=== PATIENT | female | born 1965 | race Caucasian/White ===

== ENCOUNTER → 2025-10-14 | Outpatient (CLI) | payer OTHER, SELFPAY ==
--- NOTE | 2025-10-14 09:15 | CYST_PTH ---
PATIENT: ROSALIA CASH LOC: [facility] #:[id number] AGE/SX: 60/F ROOM: RE10/14/[address]: Dr. Jason Chaves MD : 1965 BED: DIS: 10/14/2025 SPEC #: [id number] RECD: 10/14/25 15:57 STATUS: SACHIN REQ #: [id number] JAIDEN: 10/14/25 09:[address]: Jason Chaves DEPT: SURGICAL PATHOLOGY RECD BY: Lida Banks ENTERED: 10/17/25 08:11 SP TYPE: Cyst OTHR DR: Dr. Charles Parra MD Tissues: A - CYST B - Abdomen, NOS Procedures: Surgery Specimen Level III HEADER OPERATION: Excision of back / left abdomen cyst PRE-OP DIAGNOSIS: Back / left abdomen cyst TISSUE SUBMITTED: A- Back cyst, B- Left abdomen MICROSCOPIC DIAGNOSIS A. Skin, back, cyst, excision: - Epidermal inclusion cyst. B. 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 MICROSCOPIC DESCRIPTION Slides are reviewed. GROSS DESCRIPTION Received in 2 formalin containers labeled with the patient's name and date of . Designated as: A. #1 back cyst is a 2.4 x 2.3 x 1.5 cm focally disrupted cyst with attached soft tissue, expelling sebaceous like material and surfaced by a castro, granular, unoriented skin ellipse, 3.2 x 0.7 cm. A abrasives sales representative section is submitted in 1 cassette. B. #2 L abdomen is a 1.4 x 1.0 x 0.5 cm castro-white to brown, somewhat shaggy portion of soft tissue, surfaced by a 1.3 x 0.6 cm castro skin ellipse devoid of orientation. Sectioning reveals congested cut surfaces and a 0.3 x 0.2 cm cyst containing a minimal amount of sebaceous like material. Entirely submitted in 1 cassette. [place] 10/17/2025 CPT:06544v3
--- OUTSIDE RECORDS SUMMARY | 2025-10-14 16:14 | XMS RPT_ITS | CCD ---
Author Organization [place] [facility] [facility] Care Team Providers Care Ore Miner Name Role Phone BREE NGUYEN Unavailable Unavailable MELANIA DONAHUE Unavailable Unavailable Primary Care Provider UnavailDr. Татьяна Chaudhry MD Attending Provider [phone] ТАТЬЯНА CHAVES MD Attending Unavail MELANIA Hargrove MD Primary Care Unavailable Dr. Татьяна Chaves MD Attending Physician [phone] Huong SENIOR NET ENGINEER, Rosalia Referring Unavailable Татьяна Chaves Attending Unavailable Татьяна Chaves Attending Unavailable Allergies Allergy Classification Reported Allergen(s) Allergy Type Date of Onset Reaction(s) Facility (1 source) Gadolinium-MRI Contrast Medium Allergy to substance 08-12-2025 Anaphylaxis [facility] (1 source) Gadolinium-MRI Contrast Medium Drug allergy (disorder) 08-12-2025 [facility] Repository Medications Current Medications Medication Drug Class(es) Dates Sig (Normalized) Sig (Original) [id number] 0.3 ml EPINEPHrine 1 mg/ml auto-injector (1 source) alpha-Adrenergic Agonist, beta-Adrenergic Agonist, Catecholamine Start: 07-08-2025 Epinephrine 0.3 mg/0.3 mL auto-injector Active 0.3 mg IM ONCE July 08, 2025 12:00am as a single dose; may repeat once Complies with drug therapy levocetirizine dihydrochloride 0.5 mg/ml oral solution (1 source) Histamine-1 Receptor Antagonist Start: 07-08-2025 take 5 mg by mouth once daily Levocetirizine (Xyzal) 2.5 mg/5 mL solution Active 5 mg PO daily July 08, 2025 12:00am Complies with drug therapy lisinopril 20 mg oral tablet (1 source) Angiotensin Converting Enzyme Inhibitor Start: 07-08-2025 take 1 tablet by mouth once daily Lisinopril 20 mg tablet Active 20 mg PO daily July 08, 2025 12:00am Complies with drug therapy red yeast rice 600 mg / ubidecarenone 25 mg oral capsule (1 source) Start: 07-08-2025 Co Q10-Red Yeast Rice 25-600 mg capsule Active NMA PO July 08, 2025 12:00am Complies with drug therapy Problems Problem Classification Problem Date Documented Da te Episodic/Chronic Other gastrointestinal disorders (1 source) Cyst of abdomen 07-08-2025 Episodic Other skin disorders (2 sources) Epidermoid cyst of skin of back; Translations: [Epidermal cyst] 07-08-2025 Episodic Other skin disorders (2 sources) Epidermoid cyst; Translations: [Epidermal cyst] 07-08-2025 Episodic Other skin disorders (1 source) Epidermal cyst; Translations: [Epidermal cyst] Onset: 08-24-2025 Episodic Results Test Name Value Interpretation Reference Range Facility Plastic Surgery Visit Report on 08-12-2025 Plastic Surgery Visit Report [facility] Plastic Reconstructive Surgery [address], [address] [place] [address] OFFICE VISIT Date of Service: 08/12/25 MR#: [id number] Acct: [id number] Name: ROSALIA CASH Rep #: [id number] : 1965 Provider: Dr. Татьяна Chaves MD Age/Sex: 59/F Location: [facility] Status: Signed Intake Vital Signs 3 07/08/25 12:03 08/12/25 14:22 Height 5 ft 5.5 in 5 ft 5.5 in Weight: 195 lb BMI 31.9 BP 148/81 H 121/74 H Blood Pressure Location Lt brachial Lt brachial Position Sitting Sitting Respiration 18 18 Pulse 69 75 Temp 98.7 F 97.5 F L Temp Source Temporal Oral Pulse Oximetry (%) 95 93 Oxygen Delivery Method room air room air Intake Visit Reasons: US results Chief Complaint: cyst on abdomen and back Is patient in pain?: No Allergies Gadolinium-MRI Contrast Medium (contrast dye) Allergy (Mild, Verified 08/12/25 14:23) Anaphylaxis Medications 3 ???Medication ???Instructions ???Recorded ???Confirmed ???Type coenzyme Q10-red yeast rice 25 cap PO 07/08/25 08/12/25 History mg-600 mg capsule epinephrine 0.3 mg/0.3 mL 0.3 mg IM ONCE 07/08/25 08/12/25 H istory injection, auto-injector levocetirizine 2.5 mg/5 mL oral 5 mg PO QDAY 07/08/25 08/12/25 His tory solution (Xyzal) lisinopril 20 mg tablet 20 mg PO QDAY 07/08/25 08/12/25 Hi story [facility] Medical History (Updated 07/08/25 @ 13:06 by Kourtney Gutierrez) Hypertension Chronic headaches Bladder infection Bone fracture Anemia Allergies Surgical History (Updated 07/08/25 @ 11:33 by Kourtney Gutierrez) H/O: hysterectomy Family History (Updated 07/08/25 @ 12:07 by Kourtney Gutierrez) Father Bleeding disorder Blood clot in vein Asthma Alcoholism Anxiety Depression Hypertension Skin cancer CVA (cerebral vascular accident) Mother Arthritis High cholesterol Osteoporosis Thyroid disorder Social History (Updated 07/08/25 @ 12:08 by Kourtney Gutierrez) Smoking Status: Never smoker alcohol intake: never substance use type: does not use additional social history: pt denies vaping, denies edibles, denies marijuana, denies aspirin and denies ibuprofen use pt does have family history of blood disorder HPI US results Details: The patient is a 59-year-old female presenting with cysts on the abdomen and back. The abdominal cyst, identified as an epidermal inclusion cyst, has been present since last summer and was previously drained by a physician architectural administrative assistant. The patient reports no history of abdominal surgeries, except for a transvaginal hysterectomy, and denies any history of Crohn's disease. The cyst on the mid back is consistent with a sebaceous cyst, as previously diagnosed by another healthcare provider. The patient has a history of MRSA infection, for which she was treated with doxycycline and Augmentin. She is cautious about infection due to family members having MRSA and has been taking precautions to avoid exposure. ROS: - Integumentary: Reports two cysts, one on the abdomen and one on the back. Denies new lumps or bumps. - Gastrointestinal: Denies history of abdominal surgeries except for a transvaginal hysterectomy. Denies Crohn's disease. Attestation: Documentation on this patient encounter was supported using ambient scribe technology/ voice AI technology. The patient consented to recording for the purpose of documenting the encounter. Provider reviewed content of the generated note prior to signature. Exam Details - Abdominal: No hernias detected, no scars from any abdominal surgeries - Dermatological: Presence of lateral abdominal wall cyst, described as chronically infected epidermal inclusion cyst that is open and draining. No signs of acute infection There is also well-circumscribed posterior trunk cyst that is subcutaneous mobile Supplemental Info - Ultrasound: Soft tissue ultrasound performed on both cysts, confirming their presence. Coding Level of Care Code Off vis,est,level 2 Diagnoses Epidermoid cyst of skin of back L72.0 Cyst of abdomen Assessment and Plan (No Qualifiers) Assessment and Plan (1) Epidermoid cyst of skin of back: Status: Acute (2) Cyst of abdomen: Status: Acute Plan: Assessment and Plan 59-year-old female with a history of epidermal inclusion cyst on the abdomen and sebaceous cyst on the mid back presenting for evaluation and management of these lesions. The abdominal cyst has been present since last summer and was previously drained, but it has not resolved completely, suggesting the need for surgical excision to prevent recurrence. The cyst on the back is consistent with a sebaceous cyst, and surgical removal is considered to prevent potential complications. The patient has a history of MRSA infection, w (more content not included)... Normal [facility] US SOFT TISSUE MASS OF ABD/M ID BACKon 07-20-2025 US SOFT TISSUE MASS OF ABD/MID BACK ORIGINAL EXAMINATION: SOFT TISSUE ULTRASOUND 07/20/2025 7:45 am COMPARISON: None. HISTORY: ORDERING SYSTEM PROVIDED HISTORY: Reason for Exam: CYST ON mid back (EPIDERMAL CYST) All images are recorded and archived. FINDINGS: Linear real-time Doppler evaluation demonstrates a 1.6 x 1.5 x 1.0 cm complex cyst with posterior wall enhancement and prominent peterson in the region of interest in the lower left lumbar region. Appearance is most consistent with a sebaceous cyst. IMPRESSION: 1.6 cm sebaceous cyst in the region of interest. Interpreted by: Quincy Flores DO Preliminary Report By: Quincy Flores DO Electronically signed By Quincy Flores DO Dictated Date: 07/20/2025 11:19:02 AM Prelim Date: 07/20/2025 11:20:44 AM Sign Date: 07/20/2025 11:20:44 AM Ordering Provider: [facility] MAIN US SOFT TISSUE MASS PELVIS/H IP/LOW BACKon 07-20-2025 US SOFT TISSUE MASS PELVIS/HIP/ LOW BACK ORIGINAL EXAMINATION: SOFT TISSUE ULTRASOUND 07/20/2025 7:40 am COMPARISON: None. HISTORY: ORDERING SYSTEM PROVIDED HISTORY: Reason for Exam: CYST ON low left abd/hip All images are recorded and archived. FINDINGS: Linear real-time and Doppler evaluation in the region of the left hip performed. Subcutaneous collection of hypoechogenicity measuring 1.7 x 2.5 x 0.4 cm appreciated in the region of interest. The lesion demonstrates vascularity on Doppler assessment. There is a associated skin tract. No other abnormality is seen in the region of interest. IMPRESSION: 1. 1.7 x 2.5 x 0.4 cm subcutaneous collection of hypoechogenicity in the region of interest. This may represent a small abscess or hematoma. 2. If there is clinical concern for infection, consider CT imaging of the abdomen and pelvis with IV contrast for further assessment. Interpreted by: Quincy Flores DO Preliminary Report By: Quincy Flores DO Electronically signed By Quincy Flores DO Dictated Date: 07/20/2025 11:20:48 AM Prelim Date: 07/20/2025 11:23:51 AM Sign Date: 07/20/2025 11:23:51 AM Ordering Provider: [facility] MAIN Plastic Surgery Visit Report on 07-08-2025 Plastic Surgery Visit Report [facility] Plastic Reconstructive Surgery [address], [address] [place] [address] OFFICE VISIT Date of Service: 07/08/25 MR#: [id number] Acct: [id number] Name: ROSALIA CASH Rep #: [id number] : 1965 Provider: Dr. Татьяна Chaevs MD Age/Sex: 59/F Location[facility] Status: Signed Intake Vital Signs 3 07/08/25 12:03 Height 5 ft 5.5 in Weight: 195 lb BMI 31.9 BP 148/81 H Blood Pressure Location Lt brachial Position Sitting Respiration 18 Pulse 69 Temp 98.7 F Temp Source Temporal Pulse Oximetry (%) 95 Oxygen Delivery Method room air Intake Visit Reasons: CYST ON ABDOMEN Chief Complaint: cyst on abdomen and back Is patient in pain?: No Allergies Gadolinium-MRI Contrast Medium (contrast dye) Allergy (Mild, Verified 07/08/25 12:05) Anaphylaxis Medications 3 ???Medication ???Instructions ???Recorded ???Confirmed ???Type coenzyme Q10-red yeast rice 25 cap PO 07/08/25 07/08/25 History mg-600 mg capsule epinephrine 0.3 mg/0.3 mL 0.3 mg IM ONCE 07/08/25 07/08/25 H istory injection, auto-injector levocetirizine 2.5 mg/5 mL oral 5 mg PO QDAY 07/08/25 07/08/25 His tory solution (Xyzal) lisinopril 20 mg tablet 20 mg PO QDAY 07/08/25 07/08/25 Hi story PFSH Medical History (Updated 07/08/25 @ 13:06 by Kourtney Gutierrez) Hypertension Chronic headaches Bladder infection Bone fracture Anemia Allergies Surgical History (Updated 07/08/25 @ 11:33 by Kourtney Gutierrez) H/O: hysterectomy Family History (Updated 07/08/25 @ 12:07 by Kourtney Gutierrez) Father Bleeding disorder Blood clot in vein Asthma Alcoholism Anxiety Depression Hypertension Skin cancer CVA (cerebral vascular accident) Mother Arthritis High cholesterol Osteoporosis Thyroid disorder Social History (Updated 07/08/25 @ 12:08 by Kourtney Gutierrez) Smoking Status: Never smoker alcohol intake: never substance use type: does not use additional social history: pt denies vaping, denies edibles, denies marijuana, denies aspirin and denies ibuprofen use pt does have family history of blood disorder HPI CYST ON ABDOMEN Details: The patient is a 59-year-old female presenting with an epidermal inclusion cyst on her back. The cyst has been present for some time, but recently became more noticeable due to an upcoming family event, her daughter's wedding. Previously, similar cysts have been removed from her breast, and she has been advised not to address them unless symptomatic. The patient has a history of retinal vein occlusion, which occurred without a clear cause. Extensive blood work was performed, revealing an elevated A1c level of 6.2, indicating prediabetes. Following dietary changes and weight loss, her A1c levels have improved, and her physician is not currently concerned about diabetes progression. ROS: - Dermatological: Reports presence of epidermal inclusion cyst on back, denies pain or discomfort. - Endocrine: Reports elevated A1c level previously, currently improving with diet and exercise. - Ophthalmological: Reports history of retinal vein occlusion, denies current visual disturbances. Attestation: Documentation on this patient encounter was supported using ambient scribe technology/ voice AI technology. The patient consented to recording for the purpose of documenting the encounter. Provider reviewed content of the generated note prior to signature. ROS General General: Yes good health; No fatigue, fever(s) or weight loss HENMT HENMT: No rhinitis, sore throat/mouth sore, nasal congestion, contacts or glaucoma Endo Endocrine: No thyroid disease, polydipsia, heat intolerance, cold intolerance, hepatitis or excessive urine Skin Skin: No Bleeding, bruising, changing moles or suspicious lesion Musc Musculoskeletal: Yes joint pain and joint stiffness; No muscle weakness, back pain, osteoarthritis or Muscle aches/ myalgia Neuro Neurological: No headache(s), No lightheadedness and No numbness Cardio Cardiovascular: No chest pain, pacemaker, fatigue or shortness of breat with exertion Psych Psychiatric: No depression, claustrophobia or anxiety Resp Respiratory: No spitting up, shortness of breath, sleep apnea, asthma, emphysema, TB, Cough or Smoker Gastro Gastrointestinal: No diarrhea, constipation, blood in stool, nausea, vomiting or abdominal bloating Tima Hematologic: No anemia, No bleeding and No abnormal bleeding Genitourinary: No urinary frequency, blood in urine or incontinence Exam Details - Abdominal: No hernias detected, no scars from any abdominal surgeries - Dermatological: Presence of lateral abdominal wall cyst, described as chronically infected epidermal inclusion cyst that is open and draining. No signs of acu (more content not included)... Normal [facility] URINE CULTUREon 01-29-2021 Bacteria identified Cx Nom (U) URINE RESULT LESS THAN 10,000 COLONIES PER ML Normal [facility] Comment on above: Order Comment: [place]: [place] Performed By: #### M [id number] #### [address] [address] PH# [phone] DIPSTICKon 01-27-2021 POC APPEARANCE HAZY Normal CLEAR [facility] Comment on above: Order Comment: [place]: [place] Performed By: #### L 600.49531 #### [address] [address] PH# [phone] POC BILIRUBIN Negative Normal NEGATIVE [facility] Comment on above: Order Comment: [place]: [place] Performed By: #### L 600.85916 #### [place] [id number] PH# [phone] POC BLOOD Negative Normal NEGATIVE [facility] Comment on above: Order Comment: [place]: [place] Performed By: #### L 600.58351 #### [place] [address] PH# [phone] POC COLOR YELLOW Normal [facility] Comment on above: Order Comment: [place]: [place] Performed By: #### L 600.01767 #### [place] [address] PH# [phone] POC KETONE Negative Normal NEGATIVE [facility] Comment on above: Order Comment: [place]: [place] Performed By: #### L 600.23323 #### [place] [id number] PH# [phone] POC LEUK EST Negative Normal NEGATIVE [facility] Comment on above: Order Comment: [place]: [place] Performed By: #### L 600.89845 #### [place] [id number] PH# [phone] POC NITRITE Negative Normal NEGATIVE [facility] Comment on above: Order Comment: [place]: [place] Performed By: #### L 600.66629 #### [place] [id number] PH# [phone] POC PROTEIN Negative Normal NEGATIVE [facility] Comment on above: Order Comment: [place]: [place] Performed By: #### L 600.96600 #### [address] [place] [address] PH# [phone] POC SPEC GRAV 1.030 Normal 1.005-1.03 0 [facility] Comment on above: Order Comment: [place]: [place] Performed By: #### L 600.24798 #### [address] [place] [address] PH# [phone] POC UA GLUCOSE NORMAL Normal NORMAL [facility] Comment on above: Order Comment: [place]: [place] Performed By: #### L 600.13407 #### [address] [place] [address] PH# [phone] POC UA PH 5.5 Normal 5-6 [facility] Comment on above: Order Comment: [place]: [place] Performed By: #### L 600.96115 #### [address] [place] [address] PH# [phone] POC UROBIL NORMAL Normal NORMAL [facility] Comment on above: Order Comment: [place]: [place] Performed By: #### L 600.49868 #### [place] [address] PH# [phone] NMon 01-27-2021 [facility] REPORT Normal [facility] DATE OF SERVICE: CHIEF COMPLAINT: Urinary frequency. HISTORY OF PRESENT ILLNESS: This 55-year-old female presented with urinary frequency and abdominal tenderness going on since . No other complaint. DRUG ALLERGIES: VICODIN, LATEX, CECLOR, CONTRAST DYE, FLU VACCINE. MEDICATIONS: The patient is on: 1. Lisinopril. 2. Xyzal. 3. Flonase. PHYSICAL EXAMINATION: Blood pressure is 147/75, pulse 86, respiratory rate 20, temperature 99, pulse oximetry 96%. Pain is 5/10. HEENT within normal limits. Lungs and heart within normal limits. Abdomen is soft, diffuse tenderness, no rebound tenderness. LABORATORY: UA done was negative. ASSESSMENT: Dysuria, abdominal pain and urinary incontinence. PLAN: I discussed with the patient the treatments and plan. We will wait for the [facility] PATIENT NAME: ROSALIA CASH [address] [place] MEDICAL REC #: [id number] [place] [address] [facility] REPORT [facility] PHYSICIAN cultures. Have her follow up with her PCP. Patient understood. If any worsening symptoms or change in symptoms, I advised her to come back in. Golden Simpson MD [id number] [facility] File#: [id number] END OF DOCUMENT / CHANGE LOG FOLLOWS Last Edited By Elec. Signed By Golden Simpson MD, Thang N MD #DANTH on 01/31/2021 15:21 ET on 01/31/2021 15:21 ET Revision Number - 2 Verified/Reviewed by 01/31/[address] [facility] PATIENT NAME: ROSALIA CASH [facility] [address] [place] MEDICAL REC #: [id number] [place] [address] [facility] RE[facility] PHYSICIAN Normal [facility] XR CHEST 2 VIEWSon 7 XR CHEST 2 VIEWS ORIGINALXR CHEST 2 VIEWS CLINICAL STATEMENT: SOB, recurrent cough, allergies Comparison: None FINDINGS: The cardiomediastinal silhouette is within normal limits. No focal consolidation, vascular congestion, pleural effusion, or pneumothorax. No acute osseous abnormality. IMPRESSION: No acute radiographic finding. I have personally reviewed the images of this examination and agree with the resident's findings and interpretation. Interpreted By: Shakir Mckinney MDPreliminary Report By: Lexus Monroy DOElectronically Signed By: Shakir Mckinney MD Dictated Date: 09/05/2017 3:39:24 PM Prelim Date: 09/05/2017 4:35:16 PM Sign Date: 09/05/2017 4:38:44 PM Normal [facility] ([place]) Vital Signs Date Time Vital Sign Value Performing Clinician Faci lity 08-12-2025 14:22-0400 Body height 166.[address] Татьяна Chaves MD Work Phone: [facility] 08-12-2025 14:22-0400 Body temperature 97.5 [degF] Dr. Татьяна Chaves MD Work Phone: [facility] 08-12-2025 14:22-0400 Diastolic blood pressure 74 mm[Hg] Dr. Татьяна Chaves MD Work Phone: [facility] 08-12-2025 14:22-0400 Heart rate 75 /min Dr. Татьяна Chaves MD Work Phone: [facility] 08-12-2025 14:22-0400 Respiratory rate 18 /min Dr. Татьяна Chaves MD Work Phone: [facility] 08-12-2025 14:22-0400 SaO2% (BldA) [Mass fraction] 93 % Dr. Татьяна Chaves MD Work Phone: [facility] 08-12-2025 14:22-0400 Systolic blood pressure 121 mm[Hg] Dr. Татьяна Chaves MD Work Phone: [facility] 07-08-2025 12:03-0400 Body mass index (BMI) [Ratio] 31.9 kg/m2 Dr. Татьяна Chaves MD Work Phone: [facility] 07-08-2025 12:03-0400 Body temperature 98.7 [degF] Dr. Татьяна Chaves MD Work Phone: [facility] 07-08-2025 12:03-0400 Body weight 88.[address] Татьяна Chvaes MD Work Phone: [facility] 07-08-2025 12:03-0400 Diastolic blood pressure 81 mm[Hg] Dr. Татьяна Chaves MD Work Phone: [facility] 07-08-2025 12:03-0400 Heart rate 69 /min Dr. Татьяна Chaves MD Work Phone: [facility] 07-08-2025 12:03-0400 Respiratory rate 18 /min Dr. Татьяна Chaves MD Work Phone: [facility] 07-08-2025 12:03-0400 SaO2% (BldA) [Mass fraction] 95 % Dr. Татьяна Chaves MD Work Phone: [facility] 07-08-2025 12:03-0400 Systolic blood pressure 148 mm[Hg] Dr. Татьяна Chaves MD Work Phone: [facility] Encounters Encounter Date Encounter Type Care Provider Facility Start: 08-12-2025 End: 08-12-[address] Татьяна Chaves MD -[facility] Work Phone: Start: 08-12-2025 End: 08-12-2025 ambulatory Татьяна Chaves -[facility] Start: 07-20-2025 End: 07-20-2025 ambulatory ТАТЬЯНА CHAVES MD Facility:A Start: 07-08-2025 End: 07-08-[address] Татьяна Chaves MD -[facility] Work Phone: Start: 07-08-2025 End: 07-08-2025 ambulatory Rosalia Borja NP -[facility] Start: 01-27-2021 Patient encounter procedure Golden Simpson MD Work Phone: [facility] Start: 01-27-2021 Progress Note Golden armstrong MD Work Phone[facility] Start: 09-05-2017 End: 09-06-2017 Ambulatory BREE NGUYEN Facility:[facility] Date Care Activity Detail Author Start: 07-13-2025 [facility] Start: 07-08-2025 [facility] Payers Date Payer Category Payer Self-pay 2025 Unknown [id number] 2017 Unknown [id number] 1965 Unknown [id number] Unknown [id number] Unknown [id number] Social History Date Type Detail Facility Tobacco smoking status MAIS Tobacco smoking consumption unknown [facility] Start: 1965 Sex Assigned At Not on file [facility] Start: 1965 Sex Assigned At Female [facility] Start: 07-08-2025 Tobacco smoking status NHIS Never smoked tobacco (finding) [facility] Sex Female [facility] Evaluation note 07-08-2025 Note Date & Type Note Facility 07-08-2025 Evaluation note Diagnosis Onset Date Resolution Epidermoid cyst acute July 082024 11:03am Epidermoid cyst of skin of back acute July 08 11:03am [facility] Work Phone: History of Present illness Narrative 01-27-2021 Golden Simpson MD - 01/27/2021 12:12 PM EDT Note Date & Type Note Facility 01-27-2021 History of Present illness Narrative DATE OF SERVICE: 01/27/2021 CHIEF COMPLAINT: Urinary frequency. HISTORY OF PRESENT ILLNESS: This 55-year-old female presented with urinary frequency and abdominal tenderness going on since . No other complaint. DRUG ALLERGIES: VICODIN, LATEX, CECLOR, CONTRAST DYE, FLU VACCINE. MEDICATIONS: The patient is on: 1. Lisinopril. 2. Xyzal. 3. Flonase. PHYSICAL EXAMINATION: Blood pressure is 147/75, pulse 86, respiratory rate 20, temperature 99, pulse oximetry 96%. Pain is 5/10. HEENT within normal limits. Lungs and heart within normal limits. Abdomen is soft, diffuse tenderness, no rebound tenderness. LABORATORY: UA done was negative. ASSESSMENT: Dysuria, abdominal pain and urinary incontinence. PLAN: I discussed with the patient the treatments and plan. We will wait for the cultures. Have her follow up with her PCP. Patient understood. If any worsening symptoms or change in symptoms, I advised her to come back in. Golden Simpson MD [id number] [facility] File#: [id number] END OF DOCUMENT / CHANGE LOG FOLLOWS Last Edited By Ele[employer]. Signed By Golden Simpson MD, Thang N MD #DANTH on 01/31/2021 15:21 ET on 01/31/2021 15:21 ET Revision Number - 2 ^^^ Verified/Reviewed by 01/31/[address] [facility] PATIENT NAME: ROSALIA CASH [facility] [address] MEDICAL REC #: [id number] [place] [address] [facility] documented in this encounter [facility] Evaluation note Note Date & Type Note Facility Evaluation note No assessment information availa ble [facility] Work Phone: Reason for referral (narrative) Note Date & Type Note Facility Reason for referral (narrative) No reason for referral information available [facility] Work Phone: Summary Purpose Family History No Family History Records Found Relationship Condition Age at Onset Recorded Date/T kell father Hemorrhagic disorder Unknown Venous thrombosis Unknown Asthma Unknown Alcoholism Unknown Anxiety Unknown Depression Unknown Hypertension Unknown Malignant neoplasm of skin Unknown Cerebrovascular accident (CVA) Unknown mother Arthritis Unknown High blood cholesterol Unknown Osteoporosis Unknown Disorder of thyroid Unknown Advance Directives No Advanced Directives Records FoundNo Advanced Directives Records FoundNo Advanced Directives Records FoundNo Advanced Directives Records Found Chief Complaint and Reason for Visit Chief Complaint Admit Date CYST ON ABDOMEN July 08, 2025 11 :03am Chief Complaint Admit Date CYST ON ABDOMEN July 08, 2025 11 :03am US results August 12, 2025 2: 17pm Reason for Visit Admit Date Epidermoid cyst July 08, 2025 11 :03am Epidermoid cyst of skin of back June 112024 11:03am Additional Source Comments INFORMATION SOURCE (unrecogn ized section and content) DATE CREATED AUTHOR 05/05/2018 [facility] ([place]) DATE CREATED AUTHOR AUTHOR'S ORGANIZ ATION 12/30/2021 [facility] DATE CREATED AUTHOR AUTHOR'S ORGANIZ ATION 07/24/2025 [facility] DATE CREATED AUTHOR AUTHOR'S ORGANIZ ATION 08/25/2025 [facility] Source Comments (unrecognize d section and content) In the event this informatio n is protected by the Federal Confidentiality of Alcohol and Drug Abuse Patient Records regulations: The Federal rules restrict any use of the information to criminally investigate or prosecute any alcohol or drug abuse patient.[facility] Care Teams (unrecognized sec tion and content) Team Status: Inactive Member Role/Relationship Status Dates Dr. Татьяна Chaves MD Attending Provider Active Start: July 08, 2025 End: July 08, 2025 Team Status: Inactive Member Role/Relationship Status Dates Dr. Татьяна Chaves MD Attending physician Active Start: July 08, 2025 End: July 08, 2025 Team Status: Inactive Member Role/Relationship Status Dates Dr. Татьяна Chaves MD Attending physician Active Start: August 12, 2025 End: August 12, 2025 Goals (unrecognized section and content) Goals may be documented in a n alternate sectionGoals may be documented in an alternate section FOR RECORDS PERTAINING TO PATIENTS WHO ARE OR HAVE BEEN ENROLLED IN A CHEMICAL DEPENDENCY/SUBSTANCEABUSE PROGRAM, SOME INFORMATION MAY BE OMITTED. This clinical summary was aggregated from multiple sources. Caution should be exercised in using it in the provision of clinical care. This summary normalizes information from multiple sources, and as a consequence, information in this document may materially change the coding, format and clinical context of patient data. In addition, data may be omitted in some cases. CLINICAL DECISIONS SHOULD BE BASED ON THE PRIMARY CLINICAL RECORDS. [facility]. provides no warranty or guarantee of the accuracy or completeness of information in this document.
== END | disposition home or self-care (01) ==
PROVIDERS: Referring Provider Surgery Plastic and Reconstructive Surgery; Visit Provider Surgery Plastic and Reconstructive Surgery
DX: R19.02 Left upper quadrant abdominal swelling, mass and lump (principal)
CPT/HCPCS: 88304

== ENCOUNTER → 2025-10-20 | Outpatient (CLI) | payer OTHER, SELFPAY ==
[2025-10-20 14:27] LABS: Color, Urine Yellow (Yellow); Glucose, Dipstick Normal (Normal); Ketone-Dipstick Negative (Negative); Leukocyte Esterase-Dipstick 500 /ul (Negative); Nitrite-Dipstick Positive (Negative); Occult Blood-Urine 250 /ul (Negative); Protein-Dipstick 30 mg/dl (Negative); Specific Gravity, Urine 1.025 (1.002-1.030); Urine Bilirubin Dipstick Negative (Negative)
== END | disposition home or self-care (01) ==
PROVIDERS: Referring Provider Surgery Plastic and Reconstructive Surgery; Visit Provider Surgery Plastic and Reconstructive Surgery
DX: R35.0 Frequency of micturition (principal)
CPT/HCPCS: 81002; 87086; 87088; 87186